=== PATIENT | male | born 1995 | race Caucasian/White ===

== ENCOUNTER 2017-09-09 23:27 | Inpatient (IN) | payer BC ==
[~2017-09-09] VITALS: Ht 177.8 cm; Wt 68.3 kg
[2017-09-10] MEDS ORDERED: ASACOL HD800 MG PO ×2 (00:28→00:29)
[2017-09-10 00:37] LABS: BASO # 0.1 (0.0-0.2); BASO % 0.4 % (0.0-2.0); EOS # 0.9 (0.0-0.7); EOS % 6.2 % (0-4.0); GRAN % 56.5 % (42.2-75.2); LYMPH # 3.7 (1.2-3.4); LYMPH % 25.9 % (20.0-51.0); MEAN CELL VOLUME 72 fl (80.0-95.0); MEAN CORPUSCULAR HGB CONC 28 g/dl (33.0-37.0); MEAN PLATELET VOLUME 8.7 fl (7.4-10.4); MONO # 1.5 (0.1-0.6); MONO % 10.5 % (1.7-9.3); PLATELET COUNT 455 K/mm3 (130-400); REDCELL DISTRIBUTION WIDTH-CV 22.5 % (11.5-14.5)
[2017-09-10 00:43] LABS: COLLECTION METHOD CLEAN CATCH
[2017-09-10 00:45] LABS: HEMATOCRIT 27.8 % (36.0-47.0); HEMOGLOBIN 7.9 g/dl (12.5-16.1); MEAN CORPUSCULAR HEMOGLOBIN 20 pg (26.0-32.0)
[2017-09-10 00:46] LABS: RED BLOOD COUNT 3.88 M/mm3 (4.20-5.60)
[2017-09-10 00:49] LABS: ALBUMIN 4.3 gm/dL (3.5-5.0); BILIRUBIN,TOTAL 0.3 mg/dL (0.0-1.0); C-REACTIVE PROTEIN 5.4 mg/dL (0.0-0.9); CALCIUM 9.3 mg/dL (8.4-10.2); CREATININE, serum 0.88 mg/dL (0.66-1.25); POTASSIUM 3.6 mmol/L (3.4-5.0); TOTAL PROTEIN 7.9 gm/dL (6.4-8.2)
[2017-09-10 00:52] LABS: AMORPHOUS CRYSTAL Present /uL; MUCOUS Present /lpf; PH 6 (5-8); SQUAMOUS EPITHELIAL None Seen /hpf; URINE APPEARANCE Clear; URINE BACTERIA None Seen /hpf; URINE BILIRUBIN Negative (NEGATIVE); URINE BLOOD Negative (NEGATIVE); URINE COLOR Yellow; URINE GLUCOSE Negative (NEGATIVE); URINE KETONE Negative (NEGATIVE); URINE LEUKOCYTE ESTERASE Trace (NEGATIVE); URINE NITRATE Negative (NEGATIVE); URINE PROTEIN(semi-quant) Negative (NEGATIVE); URINE RBC 0-2 /hpf; URINE UROBILINOGEN Negative (NEGATIVE)
[2017-09-10 05:18] VITALS: BP 129/63; PULSE 80; TEMP 98.1
[2017-09-10 06:27] LABS: BASO % 0.3 % (0.0-2.0); EOS # 0.9 (0.0-0.7); GRAN # 6.8 (1.4-6.5); GRAN % 54.2 % (42.2-75.2); LYMPH # 3.3 (1.2-3.4); LYMPH % 26.6 % (20.0-51.0); MEAN CELL VOLUME 71 fl (80.0-95.0); MEAN CORPUSCULAR HGB CONC 29 g/dl (33.0-37.0); MEAN PLATELET VOLUME 8.9 fl (7.4-10.4); MONO # 1.5 (0.1-0.6); MONO % 11.6 % (1.7-9.3); PLATELET COUNT 384 K/mm3 (130-400); RED BLOOD COUNT 3.61 M/mm3 (4.20-5.60); REDCELL DISTRIBUTION WIDTH-CV 22.1 % (11.5-14.5)
[2017-09-10 06:34] LABS: HEMATOCRIT 25.6 % (36.0-47.0); HEMOGLOBIN 7.3 g/dl (12.5-16.1); MEAN CORPUSCULAR HEMOGLOBIN 20 pg (26.0-32.0)
[2017-09-10 06:37] LABS: CREATININE, serum 0.77 mg/dL (0.66-1.25); POTASSIUM 3.7 mmol/L (3.4-5.0)
[2017-09-10 09:10] VITALS: BP 134/71; PULSE 76; TEMP 98.5
[2017-09-10 13:42] VITALS: BP 135/70; PULSE 81; TEMP 98.5
[2017-09-10 15:16] LABS: IRON,SERUM < 10 ug/dL (35-150)
[2017-09-10 15:26] LABS: TOTAL IRON BINDING CAPACITY 397 ug/dL (261-462)
[2017-09-10 15:52] LABS: FERRITIN 5 ng/mL (18-464)
[2017-09-10 21:18] VITALS: BP 126/64; PULSE 84; TEMP 98.7
[2017-09-11 01:11] VITALS: BP 126/60; PULSE 76; TEMP 98.8
[2017-09-11 06:00] VITALS: BP 128/49; PULSE 79; TEMP 98.8
[2017-09-11 07:10] LABS: MEAN CELL VOLUME 71 fl (80.0-95.0); MEAN CORPUSCULAR HGB CONC 28 g/dl (33.0-37.0); PLATELET COUNT 417 K/mm3 (130-400); RED BLOOD COUNT 3.74 M/mm3 (4.20-5.60); REDCELL DISTRIBUTION WIDTH-CV 21.7 % (11.5-14.5)
[2017-09-11 07:11] LABS: HEMATOCRIT 26.6 % (36.0-47.0); HEMOGLOBIN 7.5 g/dl (12.5-16.1); MEAN CORPUSCULAR HEMOGLOBIN 20 pg (26.0-32.0)
[2017-09-11 07:37] LABS: CALCIUM 9.3 mg/dL (8.4-10.2); CREATININE, serum 0.77 mg/dL (0.66-1.25); MAGNESIUM 1.7 mg/dL (1.6-2.3); PHOSPHOROUS 3.8 mg/dL (2.5-4.5); POTASSIUM 3.7 mmol/L (3.4-5.0)
[2017-09-11 09:27] VITALS: BP 130/63; PULSE 81; TEMP 98.6
[2017-09-11 09:48] LABS: BAND 41 % (0-10); LYMPHOCYTE 38 % (20.0-51.0); NEUTROPHILS 20 % (42.0-75.2)
[2017-09-11 09:49] LABS: ANISOCYTOSIS 4+; HYPOCHROMIA 2+; PLATELET ESTIMATE INCREASED (NORMAL)
[2017-09-11 13:21] LABS: CHOLESTEROL RISK RATIO 3.1
[2017-09-11 13:42] VITALS: BP 136/57; PULSE 70; TEMP 98.5
[2017-09-11 17:22] VITALS: BP 129/61; PULSE 80; TEMP 97.9
[2017-09-11 21:06] VITALS: BP 123/62; PULSE 73; TEMP 97.5
[2017-09-12] VITALS (7 sets, daily range): BP systolic 111–131; BP diastolic 52–78; PULSE 58–79; TEMP 97.6–98.1
[2017-09-12 07:00] LABS: BASO % 0.1 % (0.0-2.0); GRAN # 7.3 (1.4-6.5); GRAN % 76.9 % (42.2-75.2); HEMATOCRIT 26.7 % (36.0-47.0); HEMOGLOBIN 7.5 g/dl (12.5-16.1); LYMPH # 1.8 (1.2-3.4); LYMPH % 18.6 % (20.0-51.0); MEAN CELL VOLUME 72 fl (80.0-95.0); MEAN CORPUSCULAR HEMOGLOBIN 20 pg (26.0-32.0); MEAN CORPUSCULAR HGB CONC 28 g/dl (33.0-37.0); MONO # 0.4 (0.1-0.6); MONO % 3.9 % (1.7-9.3); PLATELET COUNT 395 K/mm3 (130-400); RED BLOOD COUNT 3.73 M/mm3 (4.20-5.60); REDCELL DISTRIBUTION WIDTH-CV 21.2 % (11.5-14.5)
[2017-09-12 07:22] LABS: ALBUMIN 3.5 gm/dL (3.5-5.0); BILIRUBIN,TOTAL 0.4 mg/dL (0.0-1.0); CALCIUM 9.3 mg/dL (8.4-10.2); CREATININE, serum 0.68 mg/dL (0.66-1.25); POTASSIUM 4.3 mmol/L (3.4-5.0); TOTAL PROTEIN 6.9 gm/dL (6.4-8.2)
[2017-09-13 06:00] VITALS: BP 110/50; PULSE 52; TEMP 98.1
[2017-09-13 06:52] LABS: BASO % 0.1 % (0.0-2.0); GRAN # 14.6 (1.4-6.5); GRAN % 85.6 % (42.2-75.2); LYMPH # 1.8 (1.2-3.4); LYMPH % 10.2 % (20.0-51.0); MEAN CELL VOLUME 73 fl (80.0-95.0); MEAN CORPUSCULAR HGB CONC 28 g/dl (33.0-37.0); MEAN PLATELET VOLUME 9.5 fl (7.4-10.4); MONO # 0.6 (0.1-0.6); MONO % 3.6 % (1.7-9.3); PLATELET COUNT 440 K/mm3 (130-400); RED BLOOD COUNT 3.77 M/mm3 (4.20-5.60); REDCELL DISTRIBUTION WIDTH-CV 21.1 % (11.5-14.5)
[2017-09-13 06:58] LABS: CALCIUM 9.3 mg/dL (8.4-10.2); CREATININE, serum 0.69 mg/dL (0.66-1.25); POTASSIUM 4.3 mmol/L (3.4-5.0)
[2017-09-13 07:03] LABS: HEMATOCRIT 27.4 % (36.0-47.0); HEMOGLOBIN 7.7 g/dl (12.5-16.1); MEAN CORPUSCULAR HEMOGLOBIN 20 pg (26.0-32.0)
[2017-09-13 09:48] VITALS: BP 119/50; PULSE 69; TEMP 97.8
[2017-09-13 13:30] VITALS: BP 121/61; PULSE 61; TEMP 97.6
[2017-09-13 17:51] VITALS: BP 111/53; PULSE 69; TEMP 98
[2017-09-13 22:42] VITALS: BP 121/63; PULSE 59; TEMP 98.3
[2017-09-14 01:07] VITALS: BP 117/61; PULSE 67; TEMP 98.3
[2017-09-14 05:50] VITALS: BP 125/77; PULSE 61; TEMP 98.1
[2017-09-14 06:50] LABS: MEAN CELL VOLUME 72 fl (80.0-95.0); MEAN CORPUSCULAR HGB CONC 28 g/dl (33.0-37.0); MEAN PLATELET VOLUME 9.4 fl (7.4-10.4); PLATELET COUNT 348 K/mm3 (130-400); RED BLOOD COUNT 3.55 M/mm3 (4.20-5.60); REDCELL DISTRIBUTION WIDTH-CV 21.2 % (11.5-14.5)
[2017-09-14 06:56] LABS: HEMATOCRIT 25.7 % (36.0-47.0); HEMOGLOBIN 7.2 g/dl (12.5-16.1); MEAN CORPUSCULAR HEMOGLOBIN 20 pg (26.0-32.0)
[2017-09-14 07:06] LABS: CALCIUM 8.7 mg/dL (8.4-10.2); CREATININE, serum 0.76 mg/dL (0.66-1.25); POTASSIUM 3.6 mmol/L (3.4-5.0)
[2017-09-14 10:27] LABS: ANISOCYTOSIS 3+; BAND 29 % (0-10); EOSINOPHIL 2 % (0-4); HYPOCHROMIA 2+; LYMPHOCYTE 31 % (20.0-51.0); NEUTROPHILS 36 % (42.0-75.2); PLATELET ESTIMATE NORMAL (NORMAL)
[2017-09-14 10:28] LABS: MICROCYTOSIS 2+
[2017-09-14] MEDS ORDERED: FERROUS SU325 MG/TAB PO (10:32)
[2017-09-14] MEDS ORDERED: NORCO 325 MG-51 TAB PO (10:34)
[2017-09-14] MEDS ORDERED: ZOFRAN ODT4 MG PO (10:34)
[2017-09-14] MEDS ORDERED: ASACOL HD800 MG PO (10:36)
[2017-09-14] MEDS ORDERED: PREDNISONE20 MG PO (10:37)
== END 2017-09-14 14:00 | disposition home or self-care (01) | DRG 438 ==
LOC: COL.ER 23:27 → SURG 09-10 02:45
PROVIDERS: Internal Medicine; Nurse Practitioner; Nurse Practitioner Primary Care; Physician Assistant
DX: K85.90 Acute pancreatitis without necrosis or infection, unspecified (principal); E43 Unspecified severe protein-calorie malnutrition; K56.7 Ileus, unspecified; K50.90 Crohn's disease, unspecified, without complications; D50.0 Iron deficiency anemia secondary to blood loss (chronic); E87.6 Hypokalemia
CPT/HCPCS: 99222-AI; 99231-AI; 99232-AI; 99239; A9537; J0696; J1170; J2405; J2920; J3480; J7030; J7060; J7120; J7512; Q9967

== ENCOUNTER 2017-09-16 00:19 | Observation (INO) | payer BC ==
[~2017-09-16] VITALS: Ht 177.8 cm; Wt 66.7 kg
[~2017-09-16 00:19] MED LIST: ASACOL HD800 MG PO; FERROUS SU325 MG/TAB PO; NORCO 325 MG-51 TAB PO; PREDNISONE20 MG PO; ZOFRAN ODT4 MG PO
[2017-09-16 01:11] LABS: HEMATOCRIT 31.2 % (36.0-47.0); HEMOGLOBIN 8.8 g/dl (12.5-16.1); MEAN CELL VOLUME 72 fl (80.0-95.0); MEAN CORPUSCULAR HEMOGLOBIN 20 pg (26.0-32.0); MEAN CORPUSCULAR HGB CONC 28 g/dl (33.0-37.0); MEAN PLATELET VOLUME 9.1 fl (7.4-10.4); PLATELET COUNT 520 K/mm3 (130-400); RED BLOOD COUNT 4.35 M/mm3 (4.20-5.60); REDCELL DISTRIBUTION WIDTH-CV 21.8 % (11.5-14.5)
[2017-09-16 01:21] LABS: ANISOCYTOSIS 3+; BAND 8 % (0-10); EOSINOPHIL 1 % (0-4); LYMPHOCYTE 17 % (20.0-51.0); MICROCYTOSIS 2+; NEUTROPHILS 67 % (42.0-75.2); PLATELET ESTIMATE INCREASED (NORMAL)
[2017-09-16 01:26] LABS: ALBUMIN 4.5 gm/dL (3.5-5.0); BILIRUBIN,TOTAL 0.3 mg/dL (0.0-1.0); CREATININE, serum 0.85 mg/dL (0.66-1.25); POTASSIUM 3.9 mmol/L (3.4-5.0); TOTAL PROTEIN 8.3 gm/dL (6.4-8.2)
[2017-09-16 06:05] VITALS: BP 128/70; PULSE 73; TEMP 98.2
[2017-09-16 10:19] LABS: COLLECTION METHOD CLEAN CATCH
[2017-09-16 10:24] LABS: PH 6 (5-8); SQUAMOUS EPITHELIAL None Seen /hpf; URINE APPEARANCE Clear; URINE BACTERIA None Seen /hpf; URINE BILIRUBIN Negative (NEGATIVE); URINE BLOOD Negative (NEGATIVE); URINE COLOR Yellow; URINE GLUCOSE Negative (NEGATIVE); URINE KETONE Negative (NEGATIVE); URINE LEUKOCYTE ESTERASE Negative (NEGATIVE); URINE NITRATE Negative (NEGATIVE); URINE PROTEIN(semi-quant) Negative (NEGATIVE); URINE RBC 0-2 /hpf; URINE UROBILINOGEN Negative (NEGATIVE)
[2017-09-16 10:57] VITALS: BP 119/63; PULSE 50; TEMP 98.3
[2017-09-16 15:04] VITALS: BP 118/51; PULSE 67; TEMP 98
== END 2017-09-16 16:42 | disposition home or self-care (01) ==
LOC: COL.ER 00:19 → SURG 03:30
PROVIDERS: Physician Assistant
DX: K50.90 Crohn's disease, unspecified, without complications (principal); K85.90 Acute pancreatitis without necrosis or infection, unspecified; F17.290 Nicotine dependence, other tobacco product, uncomplicated; Z88.2 Allergy status to sulfonamides
CPT/HCPCS: J1170; J2405; J2930; J7030; J7050; Q9967

== ENCOUNTER 2017-09-19 03:22 | Inpatient (IN) | payer BC ==
[~2017-09-19] VITALS: Ht 177.8 cm; Wt 64.7 kg
[2017-09-19] MEDS ORDERED: FERROUSAL325 MG PO (03:30)
[2017-09-19 04:05] LABS: MEAN CELL VOLUME 71 fl (80.0-95.0); MEAN CORPUSCULAR HGB CONC 28 g/dl (33.0-37.0); MEAN PLATELET VOLUME 8.9 fl (7.4-10.4); PLATELET COUNT 519 K/mm3 (130-400); RED BLOOD COUNT 4.14 M/mm3 (4.20-5.60)
[2017-09-19 04:08] LABS: HEMATOCRIT 29.5 % (36.0-47.0); HEMOGLOBIN 8.3 g/dl (12.5-16.1); MEAN CORPUSCULAR HEMOGLOBIN 20 pg (26.0-32.0)
[2017-09-19 04:21] LABS: ALBUMIN 3.8 gm/dL (3.5-5.0); BAND 36 % (0-10); BILIRUBIN,TOTAL 0.2 mg/dL (0.0-1.0); CALCIUM 9.5 mg/dL (8.4-10.2); CREATININE, serum 0.66 mg/dL (0.66-1.25); EOSINOPHIL 2 % (0-4); LYMPHOCYTE 19 % (20.0-51.0); NEUTROPHILS 33 % (42.0-75.2); POTASSIUM 3.5 mmol/L (3.4-5.0); TOTAL PROTEIN 7.1 gm/dL (6.4-8.2)
[2017-09-19 04:22] LABS: ANISOCYTOSIS 3+; HYPOCHROMIA 1+; PLATELET ESTIMATE INCREASED (NORMAL)
[2017-09-19 06:49] LABS: COLLECTION METHOD CLEAN CATCH
[2017-09-19 07:07] LABS: MUCOUS Present /lpf; PH 5 (5-8); SQUAMOUS EPITHELIAL 0-2 /hpf; URINE APPEARANCE Hazy; URINE BACTERIA None Seen /hpf; URINE BILIRUBIN Negative (NEGATIVE); URINE BLOOD Negative (NEGATIVE); URINE COLOR Amber; URINE GLUCOSE Negative (NEGATIVE); URINE KETONE Negative (NEGATIVE); URINE LEUKOCYTE ESTERASE 1+ (NEGATIVE); URINE NITRATE Negative (NEGATIVE); URINE PROTEIN(semi-quant) Negative (NEGATIVE); URINE UROBILINOGEN Negative (NEGATIVE)
[2017-09-19 08:04] VITALS: BP 128/61; PULSE 85; TEMP 98.9
[2017-09-19 11:23] VITALS: BP 117/58; PULSE 74; TEMP 98.5
[2017-09-19 15:29] VITALS: BP 115/51; PULSE 80; TEMP 98
[2017-09-19 19:15] VITALS: BP 115/51; PULSE 65; TEMP 98.5
[2017-09-20] VITALS (11 sets, daily range): BP systolic 105–132; BP diastolic 52–76; PULSE 56–78; TEMP 97.3–98.3
[2017-09-20 07:18] LABS: CALCIUM 8.6 mg/dL (8.4-10.2); CREATININE, serum 0.71 mg/dL (0.66-1.25); POTASSIUM 3.4 mmol/L (3.4-5.0)
[2017-09-20 08:20] LABS: BASO % 0.1 % (0.0-2.0); EOS # 0.3 (0.0-0.7); EOS % 2.7 % (0-4.0); GRAN % 52.2 % (42.2-75.2); LYMPH # 3.2 (1.2-3.4); LYMPH % 33.4 % (20.0-51.0); MEAN CELL VOLUME 73 fl (80.0-95.0); MEAN CORPUSCULAR HGB CONC 28 g/dl (33.0-37.0); MONO # 1.1 (0.1-0.6); MONO % 11.4 % (1.7-9.3); RED BLOOD COUNT 3.43 M/mm3 (4.20-5.60); REDCELL DISTRIBUTION WIDTH-CV 20.4 % (11.5-14.5)
[2017-09-20 08:23] LABS: HEMOGLOBIN 6.9 g/dl (12.5-16.1); MEAN CORPUSCULAR HEMOGLOBIN 20 pg (26.0-32.0); PLATELET COUNT 349 K/mm3 (130-400)
[2017-09-20 11:46] LABS: HIV 1/2 Antibodies Non-Reactive; HIV-1p24 Antigen Non-Reactive
[2017-09-20 21:08] LABS: HEMATOCRIT 27.5 % (36.0-47.0); HEMOGLOBIN 7.8 g/dl (12.5-16.1)
[2017-09-21 04:19] VITALS: BP 150/102; PULSE 66; TEMP 98
[2017-09-21 05:25] VITALS: BP 120/56; PULSE 58; TEMP 97.7
[2017-09-21 07:22] LABS: GRAN # 7.1 (1.4-6.5); GRAN % 73.1 % (42.2-75.2); LYMPH # 1.9 (1.2-3.4); LYMPH % 19.8 % (20.0-51.0); MEAN CELL VOLUME 72 fl (80.0-95.0); MEAN CORPUSCULAR HGB CONC 28 g/dl (33.0-37.0); MEAN PLATELET VOLUME 9.4 fl (7.4-10.4); MONO # 0.7 (0.1-0.6); MONO % 6.7 % (1.7-9.3); PLATELET COUNT 411 K/mm3 (130-400); RED BLOOD COUNT 3.51 M/mm3 (4.20-5.60); REDCELL DISTRIBUTION WIDTH-CV 20.3 % (11.5-14.5)
[2017-09-21 07:25] LABS: HEMATOCRIT 25.2 % (36.0-47.0); HEMOGLOBIN 7.1 g/dl (12.5-16.1); MEAN CORPUSCULAR HEMOGLOBIN 20 pg (26.0-32.0)
[2017-09-21 07:30] LABS: CALCIUM 8.6 mg/dL (8.4-10.2); CREATININE, serum 0.57 mg/dL (0.66-1.25); POTASSIUM 4.2 mmol/L (3.4-5.0)
[2017-09-21 08:42] VITALS: BP 117/54; PULSE 51; TEMP 97.9
[2017-09-21 11:40] VITALS: BP 127/54; PULSE 65; TEMP 98.4
[2017-09-21 15:22] VITALS: BP 125/67; PULSE 59; TEMP 98
[2017-09-21 20:02] VITALS: BP 128/61; PULSE 68; TEMP 97.9
[2017-09-22 00:43] VITALS: BP 128/54; PULSE 64; TEMP 98.3
[2017-09-22 04:03] VITALS: BP 119/58; PULSE 60; TEMP 97.8
[2017-09-22 07:38] LABS: MEAN CELL VOLUME 72 fl (80.0-95.0); MEAN CORPUSCULAR HGB CONC 28 g/dl (33.0-37.0); PLATELET COUNT 408 K/mm3 (130-400); RED BLOOD COUNT 3.82 M/mm3 (4.20-5.60)
[2017-09-22 07:42] LABS: HEMATOCRIT 27.3 % (36.0-47.0); HEMOGLOBIN 7.6 g/dl (12.5-16.1); MEAN CORPUSCULAR HEMOGLOBIN 20 pg (26.0-32.0)
[2017-09-22] MEDS ORDERED: VANCOCIN H125 MG/CAP PO (07:46)
[2017-09-22] MEDS ORDERED: PREDNISONE10 MG PO (07:52)
[2017-09-22 07:54] LABS: CALCIUM 8.8 mg/dL (8.4-10.2); CREATININE, serum 0.65 mg/dL (0.66-1.25); MAGNESIUM 1.7 mg/dL (1.6-2.3); POTASSIUM 3.8 mmol/L (3.4-5.0)
[2017-09-22 08:00] VITALS: BP 125/62; PULSE 88
[2017-09-22] MEDS ORDERED: FLORASTOR250 MG PO (09:58)
[2017-09-22 10:52] LABS: BAND 17 % (0-10); LYMPHOCYTE 5 % (20.0-51.0); NEUTROPHILS 71 % (42.0-75.2)
[2017-09-22 10:53] LABS: ANISOCYTOSIS 2+; PLATELET ESTIMATE INCREASED (NORMAL); POIKILOCYTOSIS 2+
[2017-09-22 10:54] LABS: HYPOCHROMIA 2+; TARGET CELLS 1+
[2017-09-22 10:55] LABS: POLYCHROMASIA 1+; TEAR DROP CELLS 1+
[2017-09-22 10:56] LABS: TOXIC GRANULATION PRESENT
== END 2017-09-22 11:52 | disposition home or self-care (01) | DRG 439 ==
LOC: COL.ER 03:22 → MEDICAL 05:32
PROVIDERS: Emergency Medicine; Internal Medicine Gastroenterology; Nurse Practitioner Family; Physician Assistant
PROC: 0DBF8ZX Excision of Right Large Intestine, Via Natural or Artificial Opening Endoscopic, Diagnostic (ICD-10-PCS; 2017-09-20)
PROC: 0DB98ZX Excision of Duodenum, Via Natural or Artificial Opening Endoscopic, Diagnostic (ICD-10-PCS; 2017-09-20)
PROC: 0DB68ZX Excision of Stomach, Via Natural or Artificial Opening Endoscopic, Diagnostic (ICD-10-PCS; 2017-09-20)
PROC: 0DB18ZX Excision of Upper Esophagus, Via Natural or Artificial Opening Endoscopic, Diagnostic (ICD-10-PCS; 2017-09-20)
PROC: 0DBG8ZX Excision of Left Large Intestine, Via Natural or Artificial Opening Endoscopic, Diagnostic (ICD-10-PCS; principal; 2017-09-20 08:30)
PROC: 0DBP8ZX Excision of Rectum, Via Natural or Artificial Opening Endoscopic, Diagnostic (ICD-10-PCS; 2017-09-20 08:30)
DX: K85.00 Idiopathic acute pancreatitis without necrosis or infection (principal); A04.72 Enterocolitis due to Clostridium difficile, not specified as recurrent; K51.011 Ulcerative (chronic) pancolitis with rectal bleeding; B37.81 Candidal esophagitis; K86.1 Other chronic pancreatitis; F17.210 Nicotine dependence, cigarettes, uncomplicated; D50.9 Iron deficiency anemia, unspecified; K29.30 Chronic superficial gastritis without bleeding
CPT/HCPCS: 99223-AI; 99232-AI; 99239; C9113; G0378; J0696; J1170; J1885; J2405; J2704; J2765; J2930; J3475; J7030

== ENCOUNTER 2017-09-27 14:34 | Emergency (ER) | payer BC ==
[~2017-09-27] VITALS: Ht 177.8 cm; Wt 61.4 kg
[~2017-09-27 14:34] MED LIST changes: +FERROUSAL325 MG PO; +FLORASTOR250 MG PO; +PREDNISONE10 MG PO; +VANCOCIN H125 MG/CAP PO
[2017-09-27 14:45] VITALS: TEMP 98.4
[2017-09-27 16:06] LABS: BASO % 0.2 % (0.0-2.0); EOS # 0.1 (0.0-0.7); EOS % 0.7 % (0-4.0); GRAN # 13.7 (1.4-6.5); GRAN % 87.5 % (42.2-75.2); LYMPH # 1.1 (1.2-3.4); LYMPH % 7.1 % (20.0-51.0); MEAN CELL VOLUME 70 fl (80.0-95.0); MEAN CORPUSCULAR HGB CONC 28 g/dl (33.0-37.0); MEAN PLATELET VOLUME 8.7 fl (7.4-10.4); MONO # 0.6 (0.1-0.6); MONO % 4.1 % (1.7-9.3); PLATELET COUNT 441 K/mm3 (130-400); RED BLOOD COUNT 4.01 M/mm3 (4.20-5.60); REDCELL DISTRIBUTION WIDTH-CV 20.3 % (11.5-14.5)
[2017-09-27 16:11] LABS: HEMATOCRIT 28.2 % (36.0-47.0); HEMOGLOBIN 7.9 g/dl (12.5-16.1); MEAN CORPUSCULAR HEMOGLOBIN 20 pg (26.0-32.0)
[2017-09-27 16:17] LABS: ALBUMIN 3.8 gm/dL (3.5-5.0); BILIRUBIN,TOTAL 0.4 mg/dL (0.0-1.0); C-REACTIVE PROTEIN 2.9 mg/dL (0.0-0.9); CALCIUM 8.9 mg/dL (8.4-10.2); CREATININE, serum 0.64 mg/dL (0.66-1.25); POTASSIUM 4.2 mmol/L (3.4-5.0); TOTAL PROTEIN 6.9 gm/dL (6.4-8.2)
[2017-09-27 17:27] LABS: COLLECTION METHOD CLEAN CATCH
[2017-09-27] MEDS ORDERED: NORCO 325 MG-51 TAB PO (17:59)
[2017-09-27 18:33] VITALS: BP 113/69; PULSE 94
[2017-09-27 19:08] LABS: PH 6 (5-8); URINE APPEARANCE Clear; URINE BILIRUBIN Negative (NEGATIVE); URINE BLOOD Negative (NEGATIVE); URINE COLOR Yellow; URINE GLUCOSE Negative (NEGATIVE); URINE KETONE Negative (NEGATIVE); URINE LEUKOCYTE ESTERASE Negative (NEGATIVE); URINE NITRATE Negative (NEGATIVE); URINE PROTEIN(semi-quant) Negative (NEGATIVE); URINE UROBILINOGEN Negative (NEGATIVE)
[2017-09-27 19:10] LABS: URINE BACTERIA None Seen /hpf; URINE RBC 0-2 /hpf
== END 2017-09-27 18:32 | disposition home or self-care (01) ==
LOC: COL.ER 14:34
PROVIDERS: Emergency Medicine
DX: R10.13 Epigastric pain (principal); R10.11 Right upper quadrant pain; Z87.19 Personal history of other diseases of the digestive system
CPT/HCPCS: J2270; J7030

== ENCOUNTER → 2017-09-28 | Outpatient (CLI) | payer BC | LOC: COL.LAB 16:06 | DX: R79.89 Other specified abnormal findings of blood chemistry (principal) ==

== ENCOUNTER → 2018-04-26 | Outpatient (CLI) | payer BC ==
[~2018-04-26] MED LIST changes: +VTAMINC250TA PO
[2018-04-26 16:09] LABS: BASO % 0.3 % (0.0-2.0); EOS # 0.6 (0.0-0.7); EOS % 3.8 % (0-4.0); GRAN # 9.2 (1.4-6.5); GRAN % 59.4 % (42.2-75.2); HEMATOCRIT 36.6 % (36.0-47.0); HEMOGLOBIN 11.3 g/dl (12.5-16.1); LYMPH # 3.8 (1.2-3.4); MEAN CELL VOLUME 80 fl (80.0-95.0); MEAN CORPUSCULAR HEMOGLOBIN 25 pg (26.0-32.0); MEAN CORPUSCULAR HGB CONC 31 g/dl (33.0-37.0); MEAN PLATELET VOLUME 9.3 fl (7.4-10.4); MONO # 1.7 (0.1-0.6); MONO % 11.1 % (1.7-9.3); PLATELET COUNT 489 K/mm3 (130-400); RED BLOOD COUNT 4.57 M/mm3 (4.20-5.60); REDCELL DISTRIBUTION WIDTH-CV 15.2 % (11.5-14.5)
== END ==
LOC: COL.LAB 13:58
PROVIDERS: Family Medicine
DX: J32.9 Chronic sinusitis, unspecified (principal); D84.9 Immunodeficiency, unspecified

== ENCOUNTER 2018-05-24 01:54 | Emergency (ER) | payer BC ==
[~2018-05-24] VITALS: Ht 175.3 cm; Wt 75.0 kg
[~2018-05-24 01:54] MED LIST changes: +FLONASEALLERGY NS
[2018-05-24 01:57] VITALS: TEMP 97.9
[2018-05-24 02:31] LABS: BASO % 0.3 % (0.0-2.0); EOS # 0.2 (0.0-0.7); EOS % 1.5 % (0-4.0); GRAN # 9.7 (1.4-6.5); GRAN % 70.2 % (42.2-75.2); HEMATOCRIT 35.1 % (42.0-52.0); LYMPH % 21.5 % (20.0-51.0); MEAN CELL VOLUME 78 fl (80.0-100.0); MEAN CORPUSCULAR HEMOGLOBIN 25 pg (27.0-31.0); MEAN CORPUSCULAR HGB CONC 31 g/dl (33.0-37.0); MEAN PLATELET VOLUME 9.6 fl (7.4-10.4); MONO # 0.9 (0.1-0.6); MONO % 6.2 % (1.7-9.3); PLATELET COUNT 392 K/mm3 (130-400); RED BLOOD COUNT 4.49 M/mm3 (4.20-5.60); REDCELL DISTRIBUTION WIDTH-CV 15.3 % (11.5-14.5)
[2018-05-24 02:44] LABS: ALBUMIN 4.3 gm/dL (3.5-5.0); BILIRUBIN,TOTAL 0.4 mg/dL (0.0-1.0); C-REACTIVE PROTEIN 0.7 mg/dL (0.0-0.9); CALCIUM 9.1 mg/dL (8.4-10.2); CREATININE, serum 0.69 mg/dL (0.66-1.25); POTASSIUM 3.4 mmol/L (3.4-5.0); TOTAL PROTEIN 8.3 gm/dL (6.4-8.2)
[2018-05-24] MEDS ORDERED: CIPRO 500MG TA500 MG PO (03:34)
[2018-05-24] MEDS ORDERED: FLAGYL500 MG PO (03:34)
[2018-05-24] MEDS ORDERED: PREDNISONE20 MG PO (03:34)
[2018-05-24 03:52] VITALS: BP 113/77; PULSE 86
== END 2018-05-24 03:53 | disposition home or self-care (01) ==
LOC: COL.ER 01:54
PROVIDERS: Physician Assistant
DX: G43.909 Migraine, unspecified, not intractable, without status migrainosus (principal)
CPT/HCPCS: J1200; J2765; J7030; J7512

== ENCOUNTER 2018-05-30 13:00 | Outpatient (RCR) | payer BC ==
[2018-04-19 14:18] LABS: HEMOGLOBIN 11.3 g/dl (12.5-16.1); MEAN CELL VOLUME 80 fl (80.0-95.0); MEAN CORPUSCULAR HEMOGLOBIN 25 pg (26.0-32.0); MEAN CORPUSCULAR HGB CONC 31 g/dl (33.0-37.0); MEAN PLATELET VOLUME 8.5 fl (7.4-10.4); PLATELET COUNT 464 K/mm3 (130-400); RED BLOOD COUNT 4.59 M/mm3 (4.20-5.60); REDCELL DISTRIBUTION WIDTH-CV 15.8 % (11.5-14.5)
[2018-04-19 14:19] LABS: HEMATOCRIT 36.6 % (36.0-47.0)
[2018-04-19 14:28] LABS: TOTAL PROTEIN 7.8 gm/dL (6.4-8.2)
[2018-04-19 14:46] LABS: BILIRUBIN,DIRECT 0.1 mg/dL (0.0-0.4); BILIRUBIN,TOTAL 0.2 mg/dL (0.0-1.0)
[2018-04-19 14:54] VITALS: BP 106/68; PULSE 72; TEMP 98.2
[2018-05-02 13:04] LABS: HEMOGLOBIN 10.6 g/dl (12.5-16.1); MEAN CELL VOLUME 79 fl (80.0-95.0); MEAN CORPUSCULAR HEMOGLOBIN 25 pg (26.0-32.0); MEAN CORPUSCULAR HGB CONC 31 g/dl (33.0-37.0); MEAN PLATELET VOLUME 8.9 fl (7.4-10.4); PLATELET COUNT 436 K/mm3 (130-400); RED BLOOD COUNT 4.32 M/mm3 (4.20-5.60); REDCELL DISTRIBUTION WIDTH-CV 15.1 % (11.5-14.5)
[2018-05-02 13:14] LABS: ALBUMIN 3.7 gm/dL (3.5-5.0); BILIRUBIN,DIRECT 0.2 mg/dL (0.0-0.4); BILIRUBIN,TOTAL 0.2 mg/dL (0.0-1.0); TOTAL PROTEIN 7.3 gm/dL (6.4-8.2)
[2018-05-02 13:52] VITALS: BP 120/58; PULSE 69; TEMP 98
[~2018-05-30] VITALS: Ht 177.8 cm; Wt 78.7 kg
[~2018-05-30 13:00] MED LIST changes: +CIPRO 500MG TA500 MG PO; +FLAGYL500 MG PO
[2018-05-30 13:17] LABS: HEMOGLOBIN 10.7 g/dl (13.5-18.0); MEAN CELL VOLUME 80 fl (80.0-100.0); MEAN CORPUSCULAR HEMOGLOBIN 25 pg (27.0-31.0); MEAN CORPUSCULAR HGB CONC 31 g/dl (33.0-37.0); MEAN PLATELET VOLUME 9.6 fl (7.4-10.4); PLATELET COUNT 343 K/mm3 (130-400); RED BLOOD COUNT 4.37 M/mm3 (4.20-5.60); REDCELL DISTRIBUTION WIDTH-CV 15.8 % (11.5-14.5)
[2018-05-30 13:26] LABS: HEMATOCRIT 34.9 % (42.0-52.0)
[2018-05-30 13:28] LABS: ALBUMIN 4.1 gm/dL (3.5-5.0); BILIRUBIN UNCONJUGATED 0.3 mg/dL (0.0-1.1); BILIRUBIN,DIRECT 0.1 mg/dL (0.0-0.4); BILIRUBIN,TOTAL 0.4 mg/dL (0.0-1.0); TOTAL PROTEIN 7.6 gm/dL (6.4-8.2)
[2018-05-30 13:55] VITALS: BP 126/68; PULSE 79; TEMP 97.7
== END 2018-05-30 14:40 | disposition home or self-care (01) ==
LOC: EUO 13:00
PROVIDERS: Internal Medicine Gastroenterology
DX: K51.018 Ulcerative (chronic) pancolitis with other complication (principal)
CPT/HCPCS: J3380; J7050

== ENCOUNTER → 2018-06-26 | Outpatient (CLI) | payer BC ==
[2018-06-26 10:39] LABS: BASO % 0.4 % (0.0-2.0); EOS # 0.3 (0.0-0.7); EOS % 2.7 % (0-4.0); GRAN # 4.3 (1.4-6.5); HEMOGLOBIN 12.5 g/dl (13.5-18.0); LYMPH # 4.2 (1.2-3.4); LYMPH % 43.9 % (20.0-51.0); MEAN CELL VOLUME 80 fl (80.0-100.0); MEAN CORPUSCULAR HEMOGLOBIN 25 pg (27.0-31.0); MEAN CORPUSCULAR HGB CONC 31 g/dl (33.0-37.0); MEAN PLATELET VOLUME 9.4 fl (7.4-10.4); MONO # 0.8 (0.1-0.6); MONO % 7.8 % (1.7-9.3); PLATELET COUNT 393 K/mm3 (130-400); RED BLOOD COUNT 5.03 M/mm3 (4.20-5.60); REDCELL DISTRIBUTION WIDTH-CV 16.8 % (11.5-14.5)
[2018-06-26 11:03] LABS: ERYTHROCYTE SEDIMENTATION RATE 1 mm/hr (0-15)
== END ==
LOC: COL.LAB 10:21
PROVIDERS: Family Medicine
DX: M25.522 Pain in left elbow (principal)

== ENCOUNTER 2018-07-26 15:14 | Outpatient (CLI) | payer BC ==
[~2018-07-26] VITALS: Ht 177.8 cm; Wt 86.3 kg
[2018-07-26 15:33] LABS: HEMATOCRIT 37.9 % (42.0-52.0); HEMOGLOBIN 12.4 g/dl (13.5-18.0); MEAN CELL VOLUME 81 fl (80.0-100.0); MEAN CORPUSCULAR HEMOGLOBIN 27 pg (27.0-31.0); MEAN CORPUSCULAR HGB CONC 33 g/dl (33.0-37.0); MEAN PLATELET VOLUME 9.5 fl (7.4-10.4); PLATELET COUNT 304 K/mm3 (130-400); RED BLOOD COUNT 4.68 M/mm3 (4.20-5.60); REDCELL DISTRIBUTION WIDTH-CV 17.5 % (11.5-14.5)
[2018-07-26 15:41] LABS: ALBUMIN 4.4 gm/dL (3.5-5.0); TOTAL PROTEIN 7.7 gm/dL (6.4-8.2)
[2018-07-26 16:07] LABS: BILIRUBIN UNCONJUGATED 0.2 mg/dL (0.0-1.1); BILIRUBIN,DIRECT 0.2 mg/dL (0.0-0.4); BILIRUBIN,TOTAL 0.3 mg/dL (0.0-1.0)
[2018-07-26 17:00] VITALS: BP 118/46; PULSE 75; TEMP 98.2
== END 2018-07-26 17:29 | disposition home or self-care (01) ==
LOC: EUO 15:14
PROVIDERS: Internal Medicine Gastroenterology
DX: K51.018 Ulcerative (chronic) pancolitis with other complication (principal); Z79.899 Other long term (current) drug therapy
CPT/HCPCS: J3380; J7050

== ENCOUNTER → 2018-07-26 | Outpatient (CLI) | payer BC ==
[2018-07-26 17:56] LABS: HEMATOCRIT 39.3 % (42.0-52.0); HEMOGLOBIN 12.6 g/dl (13.5-18.0); MEAN CELL VOLUME 82 fl (80.0-100.0); MEAN CORPUSCULAR HEMOGLOBIN 26 pg (27.0-31.0); MEAN CORPUSCULAR HGB CONC 32 g/dl (33.0-37.0); MEAN PLATELET VOLUME 10.4 fl (7.4-10.4); PLATELET COUNT 348 K/mm3 (130-400); RED BLOOD COUNT 4.78 M/mm3 (4.20-5.60); REDCELL DISTRIBUTION WIDTH-CV 17.6 % (11.5-14.5); RETIC # 0.07 M/mm3 (0.02-0.16); RETIC % 1.6 % (0.5-3.52)
[2018-07-26 18:01] LABS: IRON,SERUM 36 ug/dL (35-150)
[2018-07-26 18:10] LABS: TOTAL IRON BINDING CAPACITY 515 ug/dL (261-462)
[2018-07-26 18:34] LABS: FERRITIN 7 ng/mL (18-464)
== END ==
LOC: ZCOL.LAB 16:32
PROVIDERS: Family Medicine
DX: D64.9 Anemia, unspecified (principal)

== ENCOUNTER 2018-08-15 13:00 | Outpatient (RCR) | payer BC ==
[2018-08-03 14:02] VITALS: BP 124/55; PULSE 73; TEMP 98.2
[2018-08-08 13:34] VITALS: BP 136/62; PULSE 72; TEMP 98.3
[2018-08-10 14:30] VITALS: BP 132/62; PULSE 68; TEMP 97.8
[~2018-08-15] VITALS: Ht 177.8 cm; Wt 85.0 kg
[2018-08-15 14:29] VITALS: BP 132/70; PULSE 86; TEMP 97.9
== END 2018-08-15 15:15 | disposition home or self-care (01) ==
LOC: EUO 13:00
DX: D50.9 Iron deficiency anemia, unspecified (principal)
CPT/HCPCS: J2916

== ENCOUNTER 2018-09-20 14:09 | Outpatient (CLI) | payer BC ==
[~2018-09-20] VITALS: Ht 177.8 cm; Wt 88.6 kg
[2018-09-20 14:49] LABS: ALBUMIN 4.3 gm/dL (3.5-5.0); TOTAL PROTEIN 7.5 gm/dL (6.4-8.2)
[2018-09-20 14:58] LABS: BILIRUBIN UNCONJUGATED 0.4 mg/dL (0.0-1.1); BILIRUBIN,DIRECT 0.2 mg/dL (0.0-0.4); BILIRUBIN,TOTAL 0.5 mg/dL (0.0-1.0)
[2018-09-20 14:59] LABS: HEMOGLOBIN 13.4 g/dl (13.5-18.0); MEAN CELL VOLUME 84 fl (80.0-100.0); MEAN CORPUSCULAR HEMOGLOBIN 30 pg (27.0-31.0); MEAN CORPUSCULAR HGB CONC 35 g/dl (33.0-37.0); PLATELET COUNT 283 K/mm3 (130-400); RED BLOOD COUNT 4.51 M/mm3 (4.20-5.60); REDCELL DISTRIBUTION WIDTH-CV 15.5 % (11.5-14.5)
[2018-09-20 15:37] VITALS: BP 124/55; PULSE 71; TEMP 97.8
== END 2018-09-20 16:34 | disposition home or self-care (01) ==
LOC: EUO 14:09
PROVIDERS: Internal Medicine Gastroenterology
DX: K51.018 Ulcerative (chronic) pancolitis with other complication (principal); Z79.899 Other long term (current) drug therapy
CPT/HCPCS: J3380; J7050

== ENCOUNTER 2018-11-15 14:15 | Outpatient (CLI) | payer BC ==
[~2018-11-15] VITALS: Ht 177.8 cm; Wt 91.0 kg
[2018-11-15 14:40] LABS: HEMATOCRIT 38.4 % (42.0-52.0); HEMOGLOBIN 13.7 g/dl (13.5-18.0); MEAN CELL VOLUME 88 fl (80.0-100.0); MEAN CORPUSCULAR HEMOGLOBIN 32 pg (27.0-31.0); MEAN CORPUSCULAR HGB CONC 36 g/dl (33.0-37.0); MEAN PLATELET VOLUME 9.2 fl (7.4-10.4); PLATELET COUNT 266 K/mm3 (130-400); RED BLOOD COUNT 4.35 M/mm3 (4.20-5.60)
[2018-11-15 14:45] LABS: ALBUMIN 4.4 gm/dL (3.5-5.0); BILIRUBIN UNCONJUGATED 0.4 mg/dL (0.0-1.1); BILIRUBIN,DIRECT 0.1 mg/dL (0.0-0.4); BILIRUBIN,TOTAL 0.4 mg/dL (0.0-1.0); TOTAL PROTEIN 7.7 gm/dL (6.4-8.2)
[2018-11-15 16:00] VITALS: BP 110/85; PULSE 95; TEMP 98.2
[2018-11-15 16:10] VITALS: BP 126/64; PULSE 89
[2018-11-15 16:20] VITALS: BP 122/66; PULSE 84
[2018-11-15 16:30] VITALS: BP 136/72; PULSE 88
== END 2018-11-15 16:38 | disposition home or self-care (01) ==
LOC: EUO 14:15
PROVIDERS: Internal Medicine Gastroenterology
DX: K51.018 Ulcerative (chronic) pancolitis with other complication (principal); Z79.899 Other long term (current) drug therapy
CPT/HCPCS: J3380; J7050

== ENCOUNTER 2019-02-01 13:21 | Outpatient (CLI) | payer BC ==
[~2019-02-01] VITALS: Ht 177.8 cm; Wt 94.0 kg
[2019-02-01 13:50] LABS: HEMATOCRIT 41.7 % (42.0-52.0); HEMOGLOBIN 14.6 g/dl (13.5-18.0); MEAN CELL VOLUME 89 fl (80.0-100.0); MEAN CORPUSCULAR HEMOGLOBIN 31 pg (27.0-31.0); MEAN CORPUSCULAR HGB CONC 35 g/dl (33.0-37.0); MEAN PLATELET VOLUME 9.2 fl (7.4-10.4); PLATELET COUNT 318 K/mm3 (130-400); RED BLOOD COUNT 4.68 M/mm3 (4.20-5.60); REDCELL DISTRIBUTION WIDTH-CV 12.1 % (11.5-14.5)
[2019-02-01 14:07] VITALS: BP 114/68; PULSE 82; TEMP 98.6
[2019-02-01 14:31] LABS: ALBUMIN 4.4 gm/dL (3.5-5.0); BILIRUBIN UNCONJUGATED 0.2 mg/dL (0.0-1.1); BILIRUBIN,DIRECT 0.1 mg/dL (0.0-0.4); BILIRUBIN,TOTAL 0.3 mg/dL (0.0-1.0)
== END 2019-02-01 15:35 | disposition home or self-care (01) ==
LOC: EUO 13:21
PROVIDERS: Internal Medicine Gastroenterology
DX: K51.018 Ulcerative (chronic) pancolitis with other complication (principal); Z79.899 Other long term (current) drug therapy
CPT/HCPCS: J3380; J7050